=== PATIENT | female | born 1960 | race Caucasian/White ===

== ENCOUNTER → 2017-08-06 | Outpatient (CLI) | payer OTHER ==
--- NOTE | 2017-08-07 13:58 | MM ---
Reason for exam: screening (asymptomatic). Last mammogram was performed 2 years ago. History: Patient is postmenopausal. Family history of breast cancer in maternal grandmother. Physical Findings: A clinical breast exam by your physician is recommended on an annual basis and results should be correlated with mammographic findings. MG 3D Screening Mammo W/Cad Bilateral CC and MLO view(s) were taken. Prior study comparison: August 15, 2015, bilateral MG 3d screening mammo w/cad. November 02, 2014, right breast MG diagnostic mammo RT w CAD. The breast tissue is heterogeneously dense. This may lower the sensitivity of mammography. There is chronic nodularity bilaterally. No significant changes when compared with prior studies. ASSESSMENT: Benign, BI-RAD 2 RECOMMENDATION: Routine screening mammogram of both breasts in 1 year.
== END | disposition home or self-care (01) ==
LOC: RADMAMWWP 08:05
PROVIDERS: ATTEND Obstetrics & Gynecology
DX: Z12.31 Encounter for screening mammogram for malignant neoplasm of breast (principal)
CPT/HCPCS: 77063; 77067

== ENCOUNTER → 2017-08-06 | Outpatient (CLI) | payer OTHER ==
[2017-08-06 09:15] LABS: Basophils # (A) 0.1 k/uL (0-0.2); Basophils % (A) 1 %; Eosinophils # (A) 0.3 k/uL (0-0.7); Eosinophils % (A) 6 %; HGB 13.8 gm/dL (11.4-16.0); Lymphocytes # (A) 1.9 k/uL (1.0-4.8); Lymphocytes % (A) 34 %; MCH 32.6 pg (25.0-35.0); MCHC 34.6 g/dL (31.0-37.0); MCV 94.2 fL (80.0-100.0); Mean Platelet Volume 7.3; Monocytes # (A) 0.3 k/uL (0-1.0); Monocytes % (A) 6 %; Neutrophils # (A) 2.8 k/uL (1.3-7.7); Neutrophils % (A) 51 %; Platelet Count 256 k/uL (150-450); RBC 4.24 m/uL (3.80-5.40); RDW 13.1 % (11.5-15.5); WBC 5.5 k/uL (3.8-10.6)
[2017-08-06 09:36] LABS: ALT 31 U/L (9-52); AST 28 U/L (14-36); Albumin 4.4 g/dL (3.5-5.0); Alkaline Phosphatase 58 U/L (38-126); Anion Gap 15 mmol/L; Blood Urea Nitrogen 15 mg/dL (7-17); Calcium 9.3 mg/dL (8.4-10.2); Carbon Dioxide 21 mmol/L (22-30); Chloride 109 mmol/L (98-107); Glucose 89 mg/dL (74-99); Potassium 4.5 mmol/L (3.5-5.1); Sodium 145 mmol/L (137-145); Total Bilirubin 0.4 mg/dL (0.2-1.3); Total Protein 7.3 g/dL (6.3-8.2)
== END | disposition home or self-care (01) ==
LOC: LABWHC1 08:28
PROVIDERS: ATTEND Psychiatry & Neurology Neurology
DX: G43.909 Migraine, unspecified, not intractable, without status migrainosus (principal); Z51.81 Encounter for therapeutic drug level monitoring
CPT/HCPCS: 36415; 80053; 85025

== ENCOUNTER → 2017-09-24 | Outpatient (CLI) | payer OTHER ==
--- NOTE | 2017-09-24 16:20 | BD ---
EXAMINATION TYPE: Axial Bone Density DATE OF EXAM: 09/24/2017 COMPARISON: NONE CLINICAL HISTORY: Height: 63 Weight: 162.4 FRAX RISK QUESTIONS: Alcohol (3 or more units per day): no Family History (Parent hip fracture): no Glucocorticoids (More than 3mos): no (Ex: prednisone, prednisolone, methylprednisolone, dexamethasone, and hydrocortisone). History of Fracture in Adulthood: no Secondary Osteoporosis: 1. Type 1 Diabetes: no 2. Hyperthyroidism: no 3. Menopause before 45: no 4. Malnutrition: no 5. Chronic liver disease: no Rheumatoid Arthritis: no Current Tobacco Use: no RISK FACTORS HISTORY OF: Family History of Osteoporosis: no Active: yes Diet low in dairy products/other sources of calcium: no Postmenopausal woman: ablation 5 - 7 years ago Lost more than 2 inches in height since high school: no MEDICATIONS: coguard, topamax, simvastatin, aspirin, vitamins, fish oil, migraine meds Additional History: EXAM MEASUREMENTS: Bone mineral densitometry was performed using the [employer] System. Bone mineral density as measured about the Lumbar spine is: ----- L1-L4(G/cm2): 0.885 T Score Values are as follows: ----- L2: -2.6 ----- L3: -2.6 ----- L4: -2.6 ----- L1-L4: -2.5 Bone mineral density : baseline Bone mineral density about the R hip (g/cm2): 0.693 Bone mineral density about the L hip (g/cm2): 0.714 T Score values are as follows: -----R Neck: -2.5 -----L Neck: -2.3 -----R Total: -1.9 -----L Total: -1.8 Bone mineral density : baseline IMPRESSION: Osteoporosis (T Score less than -2.5). There is increased fracture risk and therapy is usually indicated based on age. Re-Screen 1-2 years. NOTE: T-SCORE=SD OF THE YOUNG ADULT MEAN.
== END | disposition home or self-care (01) ==
LOC: RADBDWWP 13:21
PROVIDERS: ATTEND Obstetrics & Gynecology
DX: Z13.820 Encounter for screening for osteoporosis (principal); M81.0 Age-related osteoporosis without current pathological fracture
CPT/HCPCS: 77080

== ENCOUNTER 2017-12-10 10:08 | Day surgery (SDC) | payer OTHER ==
[2017-12-05 16:05] VITALS: BMI 27.4
[~2017-12-10 10:08] MED LIST: LACTATED RINGERS 1,000 ML IV SCH
[2017-12-10 10:49] VITALS: RESP 16; TEMP 97.5
[2017-12-10] MEDS ORDERED: PROPOFOL 10 MG/ML 20 ML VIAL IV ONE (11:32)
[2017-12-10] MEDS ORDERED: LIDOCAINE 1% INJ 10MG/ML (20 ML MDV) ONE (11:32)
--- NOTE | 2017-12-10 11:36 | P.GSHP ---
History of Present Illness H&P Date: 12/10/17 Chief Complaint: Colon cancer screening 57-year-old female here today for colonoscopy. History of previous right colectomy for appendicitis. No bowel complaints. Family history of colon cancer in her grandmother. Last colonoscopy over 10 years ago. Past Medical History Past Medical History: Hyperlipidemia Additional Past Medical History / Comment(s): Migraines for 12 years. Hx. of chest pain results were negative. History of Any Multi-Drug Resistant Organisms: None Reported Past Surgical History: Appendectomy, Tubal Ligation, Uterine Ablation Additional Past Surgical History / Comment(s): Colonoscopy, surgery for a pocket from ruptured appendex., bowel ruptured. Past Anesthesia/Blood Transfusion Reactions: No Reported Reaction Smoking Status: Former smoker - Past Family History Mother Family Medical History: Cancer Additional Family Medical History / Comment(s): Lung Father Family Medical History: Cancer Additional Family Medical History / Comment(s): Lung Medications and Allergies Home Medications Medication Instructions Recorded Confirmed Type Amitriptyline HCl [Elavil] 50 mg PO DAILY 12/05/17 12/10/17 History Aspirin [Children's Aspirin] 81 mg PO DAILY 12/05/17 12/05/17 History Krfcxzfafm-PKB-Thwejwk-Codeine 1 - 2 cap PO DAILY PRN 12/05/17 12/05/17 History [Fiorinal w/Cod 37-029-60-30MG] Calcium Carbonate/Vitamin D3 1 each PO DAILY 12/05/17 12/05/17 History [Calcium 500-Vit D3 200 Tablet] Diazepam [Valium] 5 mg PO DAILY PRN 12/05/17 12/05/17 History Magnesium 200 mg PO DAILY 12/05/17 12/05/17 History Multivitamins, Thera [Multivitamin 1 tab PO DAILY 12/05/17 12/05/17 History (formulary)] Nadolol [Corgard] 80 mg PO BID 12/05/17 12/10/17 History [place]-3 Fatty Acids/Fish Oil [Fish 1 each PO DAILY 12/05/17 12/05/17 History Oil 1,000 mg Softgel] Simvastatin [Zocor] 20 mg PO HS 12/05/17 12/10/17 History Topiramate [Topamax] 50 mg PO BID 12/05/17 12/10/17 History Allergies Allergy/AdvReac Type Severity Reaction Status Date / Time naproxen Allergy Rash/Hives Verified 12/10/17 10:27 Surgical - Exam Vital Signs Temp Pulse Resp BP Pulse Ox 97.5 F L 74 16 131/69 100 12/10/17 10:47 12/10/17 10:47 12/10/17 10:47 12/10/17 10:47 12/10/17 10:47 Physical exam: General: Well-developed, well-nourished HEENT: Normocephalic, sclerae nonicteric Abdomen: Nontender, nondistended Extremities: No edema Neuro: Alert and oriented Assessment and Plan (1) Colon cancer screening Narrative/Plan: Will proceed with colonoscopy at this time. Current Visit: Yes Status: Acute Code(s): Z12.11 - ENCOUNTER FOR SCREENING FOR MALIGNANT NEOPLASM OF COLON SNOMED Code(s): 358249708
--- NOTE | 2017-12-10 12:00 | P.PCN ---
Date of Procedure: 12/10/17 Procedure(s) Performed: PREOPERATIVE DIAGNOSIS: Colon cancer screening POSTOPERATIVE DIAGNOSIS: Small cecal polyp, mild diverticulosis PROCEDURE: Colonoscopy with biopsy ANESTHESIA: MAC SURGEON: Gustavo Silva M.D. SPECIMENS: Cecal polyp ENDOSCOPIC PROCEDURE: The patient was placed on the endoscopy table in the left decubitus position. The Olympus colonoscope was inserted into the anus and passed under direct visualization to the base of the cecum. The appendiceal orifice was visualized. There did appear to be a small linear scar along the lateral aspect of the cecum. The patient had a history of previous right colectomy which was not accurate. From that point the scope was slowly withdrawn inspecting all surfaces carefully. There is a small polyp seen in the base of the cecum which was biopsied and removed using the cold biopsy forceps. There were no neoplastic inflammatory or polypoid lesions throughout the remainder of the cecum, ascending, transverse, descending, sigmoid and rectum. There was very mild left-sided diverticulosis noted. Digital rectal examination was normal. The patient was taken to the recovery room in stable condition per anesthesia guidelines. RECOMMENDATIONS: Await biopsy results.
[2017-12-10 12:23] VITALS: BP 136/80; PULSE 57
== END 2017-12-10 12:42 | disposition home or self-care (01) ==
LOC: ORWHC2ENDO 10:08
PROVIDERS: ATTEND Surgery
DX: Z12.11 Encounter for screening for malignant neoplasm of colon (principal); D12.0 Benign neoplasm of cecum; K57.30 Diverticulosis of large intestine without perforation or abscess without bleeding; Z90.49 Acquired absence of other specified parts of digestive tract; Z80.0 Family history of malignant neoplasm of digestive organs; E78.5 Hyperlipidemia, unspecified; G43.909 Migraine, unspecified, not intractable, without status migrainosus; Z79.82 Long term (current) use of aspirin; Z79.899 Other long term (current) drug therapy; Z88.6 Allergy status to analgesic agent; Z98.51 Tubal ligation status; Z87.891 Personal history of nicotine dependence
CPT/HCPCS: 88305; 45380; J2001; J2704

== ENCOUNTER 2019-08-19 16:28 | Emergency (ER) | payer OTHER ==
[2019-08-19 16:35] VITALS: BP 157/90; PULSE 75; RESP 18; TEMP 98.4
[2019-08-19] MEDS ORDERED: Acetaminophen-Codeine 300-30mg TAB PO STA (16:54)
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
--- NOTE | 2019-08-19 17:32 | XR ---
EXAMINATION TYPE: XR elbow complete LT DATE OF EXAM: 08/19/2019 COMPARISON: NONE HISTORY: Elbow pain TECHNIQUE: 3 views FINDINGS: I see no fracture nor dislocation. There is posterior and anterior fat pad sign consistent with elbow joint effusion. Joint spaces are normal. IMPRESSION: Elbow joint effusion. No fracture line seen.
--- NOTE | 2019-08-19 17:35 | CT ---
EXAMINATION TYPE: CT brain faiza wo con DATE OF EXAM: 08/19/2019 COMPARISON: None HISTORY: Left sided head injury. Fall. CT DLP: 1240.7 mGycm Automated exposure control for dose reduction was used. Ventricles have normal size. There is no mass effect nor midline shift. There is no sign of intracran ial hemorrhage. There is asymmetric appearance of the lateral ventricles on left side is larger than the right but thought to be within normal limits. I see no cerebral atrophy. The white matter appears normal. Calvarium is intact. Cervical vertebra have fairly normal spacing and alignment. Posterior elements are intact. Facet join ts are normal for age. The skull base is intact. There is normal aeration of the temporal bones. I se e no bony destructive process. IMPRESSION: Negative CT scan of the cervical spine. Negative CT scan of the brain.
[2019-08-19] MEDS ORDERED: ACET/COD 300 MG/30 MG STARTER PACK 6 TAB BTL PO STA (18:42)
== END 2019-08-19 19:04 | disposition home or self-care (01) ==
LOC: EC 16:28
DX: S42.402A Unspecified fracture of lower end of left humerus, initial encounter for closed fracture (principal); S09.90XA Unspecified injury of head, initial encounter; E78.5 Hyperlipidemia, unspecified; Z79.82 Long term (current) use of aspirin; Z79.899 Other long term (current) drug therapy; Z88.6 Allergy status to analgesic agent; Z87.891 Personal history of nicotine dependence; V19.9XXA Pedal cyclist (driver) (passenger) injured in unspecified traffic accident, initial encounter; Y93.55 Activity, bike riding
CPT/HCPCS: 29125; 70450; 72125; 99284

== ENCOUNTER → 2019-09-09 | Outpatient (CLI) | payer OTHER ==
--- NOTE | 2019-09-10 08:55 | MM ---
Reason for exam: screening (asymptomatic). Last mammogram was performed 2 years and 1 month ago. History: Patient is postmenopausal. Family history of breast cancer in maternal grandmother. Physical Findings: A clinical breast exam by your physician is recommended on an annual basis and results should be correlated with mammographic findings. MG 3D Screening Mammo W/Cad Bilateral CC and MLO view(s) were taken. Prior study comparison: August 06, 2017, bilateral MG 3d screening mammo w/cad. August 15, 2015, bilateral MG 3d screening mammo w/cad. The breast tissue is heterogeneously dense. This may lower the sensitivity of mammography. No persisting underlying areas of distortion are identified on 3D, with particular attention on the left due to patient indicated palpable abnormality. ASSESSMENT: Incomplete: need additional imaging evaluation, BI-RAD 0 RECOMMENDATION: Ultrasound of the left breast. [facility] will attempt to contact patient to return for ultrasound.
== END | disposition home or self-care (01) ==
LOC: RADMAMWWP 07:27
PROVIDERS: ATTEND Obstetrics & Gynecology
DX: Z12.31 Encounter for screening mammogram for malignant neoplasm of breast (principal)
CPT/HCPCS: 77063; 77067

== ENCOUNTER → 2019-09-21 | Outpatient (CLI) | payer OTHER ==
--- NOTE | 2019-09-21 08:11 | USB ---
Reason for exam: additional evaluation requested from abnormal screening. History: Patient is postmenopausal. Family history of breast cancer in maternal grandmother. Physical Findings: Nurse Summary: Patient complains of left breast lump with intermittent pain 2 months ago, gone now (nurse mj). US Breast Workup Limited LT Left limited breast ultrasound including focal area of concern, retroareolar and axilla demonstrates a 0.2 x 0.3 x 0.3cm cystic, benign lesion at 10 o'clock. Patient reports that the palpable area has resolved. Scanned 9-12 o'clock. These results were verbally communicated with the patient and result sheet given to the patient on 09/21/19. ASSESSMENT: Benign, BI-RAD 2 RECOMMENDATION: Return to routine screening mammogram schedule for both breasts. Manage patient on a clinical basis. If a palpable are recurs, the area can be rescanned.
== END | disposition home or self-care (01) ==
LOC: RADUSWWP 07:12
PROVIDERS: ATTEND Obstetrics & Gynecology
DX: R92.8 Other abnormal and inconclusive findings on diagnostic imaging of breast (principal)

== ENCOUNTER → 2020-11-07 | Outpatient (CLI) | payer BC, OTHER ==
--- NOTE | 2020-11-07 15:52 | BD ---
EXAMINATION TYPE: Axial Bone Density DATE OF EXAM: 11/07/2020 COMPARISON: NONE CLINICAL HISTORY: Height: 63 Weight: 171.1 FRAX RISK QUESTIONS: Alcohol (3 or more units per day): no Family History (Parent hip fracture): no Glucocorticoids (More than 3mos): no (Ex: prednisone, prednisolone, methylprednisolone, dexamethasone, and hydrocortisone). History of Fracture in Adulthood: yes Secondary Osteoporosis: 1. Type 1 Diabetes: no 2. Hyperthyroidism: no 3. Menopause before 45: no 4. Malnutrition: no 5. Chronic liver disease: no Rheumatoid Arthritis: no Current Tobacco Use: no RISK FACTORS HISTORY OF: Surgery to Spine/Hip(right/left)/Wrist (right/left): no Family History of Osteoporosis: no Active: no Diet low in dairy products/other sources of calcium: no Postmenopausal woman: yes Lost more than 2 inches in height since high school: no MEDICATIONS: Additional History: EXAM MEASUREMENTS: Bone mineral densitometry was performed using the [employer] System. Bone mineral density as measured about the Lumbar spine is: ----- L1-L4(G/cm2): 0.763 T Score Values are as follows: ----- L2: -4.2 ----- L3: -3.3 ----- L4: -3.6 ----- L1-L4: -3.5 Bone mineral density has: decreased -14.6 % since study of: 09.24.2017 Bone mineral density about the R hip (g/cm2): 0.690 Bone mineral density about the L hip (g/cm2): 0.684 T Score values are as follows: -----R Neck: -2.5 -----L Neck: -2.5 -----R Total: -2.0 -----L Total: -2.0 Bone mineral density has: decreased -2.6 % since study of: 09.24.2017 IMPRESSION: Osteoporosis (T Score less than -2.5). There is increased fracture risk and therapy is usually indicated based on age. Re-Screen 1-2 years. NOTE: T-SCORE=SD OF THE YOUNG ADULT MEAN.
--- NOTE | 2020-11-08 09:20 | MM ---
Reason for exam: screening (asymptomatic). Last mammogram was performed 1 year and 2 months ago. History: Patient is postmenopausal. Family history of breast cancer in maternal grandmother. Took hormonal contraceptives for 2 years. Physical Findings: A clinical breast exam by your physician is recommended on an annual basis and results should be correlated with mammographic findings. MG 3D Screening Mammo W/Cad Bilateral CC and MLO view(s) were taken. Prior study comparison: September 09, 2019, bilateral MG 3d screening mammo w/cad. August 06, 2017, bilateral MG 3d screening mammo w/cad. The breast tissue is heterogeneously dense. This may lower the sensitivity of mammography. There is no discrete abnormality. No significant changes when compared with prior studies. ASSESSMENT: Negative, BI-RAD 1 RECOMMENDATION: Routine screening mammogram of both breasts in 1 year.
== END | disposition home or self-care (01) ==
LOC: RADMAMWWP 07:26
PROVIDERS: ATTEND Obstetrics & Gynecology
DX: Z12.31 Encounter for screening mammogram for malignant neoplasm of breast (principal); M81.0 Age-related osteoporosis without current pathological fracture
CPT/HCPCS: 77063; 77067; 77080

== ENCOUNTER → 2022-01-01 | Outpatient (CLI) | payer BC ==
--- NOTE | 2022-01-02 08:28 | MM ---
Reason for Exam: Screening (asymptomatic). Last mammogram was performed 1 year(s) and 2 month(s) ago. Patient History: Menarche at age 10. First Full-Term at age 25. Postmenopausal. Patient used Hormonal Contraceptives for 2 years. Maternal grandmother had breast cancer. Risk Values: Karen 5 year model risk: 1.7%. NCI Lifetime model risk: 7.4%. Prior Study Comparison: 08/06/2017 Bilateral Screening Mammogram, [facility]. 09/09/2019 Bilateral Screening Mammogram, [facility]. 11/07/2020 Bilateral Screening Mammogram, [facility]. Tissue Density: The breast tissue is heterogeneously dense. This may lower the sensitivity of mammography. Findings: Analyzed By CAD. There is no suspicious group of microcalcifications. Increased asymmetric density 12:00 position left breast zone B. Overall Assessment: Incomplete: need additional imaging evaluation, BI-RAD 0 Management: Diagnostic Mammogram of the left breast. A clinical breast exam by your physician is recommended on an annual basis and results should be correlated with mammographic findings. Electronically signed and approved by: Brayan Sam M.D. Radiologis
== END | disposition home or self-care (01) ==
LOC: RADMAMWWP 16:29
PROVIDERS: ATTEND Obstetrics & Gynecology
DX: Z12.31 Encounter for screening mammogram for malignant neoplasm of breast (principal); Z78.0 Asymptomatic menopausal state; Z80.3 Family history of malignant neoplasm of breast
CPT/HCPCS: 77067

== ENCOUNTER → 2022-01-07 | Outpatient (CLI) | payer BC ==
--- NOTE | 2022-01-07 09:09 | MM ---
Reason for Exam: Additional evaluation requested from abnormal screening. Last screening mammogram was performed less than 1 month ago. Patient History: Menarche at age 10. First Full-Term at age 25. Postmenopausal. Patient used Hormonal Contraceptives for 2 years. Maternal grandmother had breast cancer. Risk Values: Karen 5 year model risk: 1.7%. NCI Lifetime model risk: 7.4%. Prior Study Comparison: 12/26/1994 Screening Mammogram, [facility]. 04/26/2014 Bilateral Diagnostic Mammogram, [facility]. 04/26/2014 Right Diagnostic Ultrasound, [facility]. 11/02/2014 Right Diagnostic Mammogram, [facility]. 08/15/2015 Bilateral Screening Mammogram, [facility]. 08/06/2017 Bilateral Screening Mammogram, [facility]. 09/09/2019 Bilateral Screening Mammogram, [facility]. 09/21/2019 Left Diagnostic Ultrasound, [facility]. 11/07/2020 Bilateral Screening Mammogram, [facility]. 01/01/2022 Bilateral MG screening mammo w CAD, [facility]. Tissue Density: Left: The breast tissue is heterogeneously dense. This may lower the sensitivity of mammography. Findings: Analyzed By CAD. Asymmetric dense tissue at 12:00 of the left breast film be persists with compression. No suspicious group of microcalcifications. Overall Assessment: Incomplete: need additional imaging evaluation, BI-RAD 0 Management: Diagnostic Breast Ultrasound of the left breast. A clinical breast exam by your physician is recommended on an annual basis and results should be correlated with mammographic findings. This exam should not preclude additional follow-up of suspicious palpable abnormalities. Results were given to the patient verbally at the time of exam. Electronically signed and approved by: Stas De La Rosa D.O.
--- NOTE | 2022-01-07 09:50 | USB ---
Reason for Exam: Additional evaluation requested from abnormal screening. Patient History: Menarche at age 10. First Full-Term at age 25. Postmenopausal. Patient used Hormonal Contraceptives for 2 years. Maternal grandmother had breast cancer. Risk Values: [place] 5 year model risk: 1.7%. NCI Lifetime model risk: 7.4%. Technique: Method: Targeted. Prior Study Comparison: 09/09/2019 Bilateral Screening Mammogram, [facility]. 11/07/2020 Bilateral Screening Mammogram, [facility]. 01/01/2022 Bilateral MG screening mammo w CAD, [facility]. Findings: The upper section of the breast of the left breast, the axilla of the left breast and the retroareolar of the left breast were scanned. A complete US of all four quadrants of the breast and retro-areolar region were reviewed. The axillary tail was evaluated. No solid or cystic masses are identified.. Overall Assessment: Negative, BI-RAD 1 Management: Screening Mammogram of both breasts in 1 year. A clinical breast exam by your physician is recommended on an annual basis and results should be correlated with mammographic findings. This exam should not preclude additional follow-up of suspicious palpable abnormalities. Results were given to the patient verbally at the time of exam. Electronically signed and approved by: Stas De La Rosa D.O.
== END | disposition home or self-care (01) ==
LOC: RADMAMWWP 08:41
PROVIDERS: ATTEND Obstetrics & Gynecology
DX: R92.8 Other abnormal and inconclusive findings on diagnostic imaging of breast (principal); Z80.3 Family history of malignant neoplasm of breast; Z78.0 Asymptomatic menopausal state
CPT/HCPCS: 77065

== ENCOUNTER → 2022-01-11 | Outpatient (CLI) | payer BC ==
[2022-01-11 17:46] LABS: Basophils # (A) 0.06 X 10*3/uL (0.00-0.10); Basophils % (A) 0.9 %; Eosinophils # (A) 0.34 X 10*3/uL (0.04-0.35); Eosinophils % (A) 5.2 %; HCT 39.7 % (37.2-46.3); HGB 13.1 g/dL (12.0-15.0); Immature Grans, Automated 0.2 %; Lymphocytes # (A) 2.32 X 10*3/uL (0.90-5.00); Lymphocytes % (A) 35.7 %; MCH 32.2 pg (27.0-32.0); MCV 97.5 fL (80.0-97.0); Mean Platelet Volume 9.8 fL (9.5-12.2); Monocytes # (A) 0.54 X 10*3/uL (0.20-1.00); Monocytes % (A) 8.3 %; NRBC Per 100 WBC 0 /100 WBCS (0.0-0.0); Neutrophils # (A) 3.22 X 10*3/uL (1.80-7.70); Neutrophils % (A) 49.7 %; Platelet Count 217 X 10*3/uL (140-440); RBC 4.07 X 10*6/uL (4.10-5.20); RDW 12.4 % (11.5-14.5); WBC 6.49 X 10*3/uL (4.50-10.00)
[2022-01-11 17:53] LABS: ALT 13 U/L (8-44); AST 26 U/L (13-35); African American GFR (CKD) 106.9 (60.0-200.0); Albumin 4.6 g/dL (3.8-4.9); Albumin/Globulin Ratio 1.53 (1.60-3.17); Alkaline Phosphatase 62 U/L (41-126); BUN/Creat Ratio 17.43 Ratio (12.00-20.00); Blood Urea Nitrogen 12.2 mg/dL (9.0-27.0); Calcium 9.9 mg/dL (8.7-10.3); Carbon Dioxide 22.6 mmol/L (20.0-27.5); Chloride 109 mmol/L (96-109); Glucose 93 mg/dL (70-110); Non-African American GFR(CKD) 92.2 (60.0-200.0); Potassium 4.6 mmol/L (3.5-5.5); Sodium 143 mmol/L (135-145); Total Bilirubin <0.15 mg/dL (0.30-1.20); Total Protein 7.6 g/dL (6.2-8.2)
[2022-01-11 18:25] LABS: Erythrocyte Sedimentation Rate 9 mm/Hr (0-30)
== END | disposition home or self-care (01) ==
LOC: LABWHC1 12:45
PROVIDERS: ATTEND Psychiatry & Neurology Neurology
DX: Z00.00 Encounter for general adult medical examination without abnormal findings (principal); Z51.81 Encounter for therapeutic drug level monitoring
CPT/HCPCS: 36415; 80053; 84439; 84443; 85025; 85652

== ENCOUNTER 2022-12-10 10:33 | Day surgery (SDC) | payer BC ==
[2022-12-04 10:45] VITALS: BMI 28.8
[~2022-12-10 10:33] MED LIST changes: -LACTATED RINGERS 1,000 ML IV SCH; +LIDOCAINE 1% (10MG/ML) FOR IV START INTRADERMA PRN
[2022-12-10] MEDS: LACTATED RINGERS 1,000 ML IV SCH ×2 (11:21→11:59)
[2022-12-10 11:25] VITALS: TEMP 97
[2022-12-10] MEDS ORDERED: LIDOCAINE 1% INJ 10MG/ML (20 ML MDV) ONE (12:02)
[2022-12-10] MEDS ORDERED: PROPOFOL 10 MG/ML 20 ML VIAL IV ONE (12:02)
--- NOTE | 2022-12-10 12:04 | P.GSHP ---
History of Present Illness H&P Date: 12/10/22 Chief Complaint: Colon cancer screening with history of polyps 62-year-old female here for colonoscopy. Last colonoscopy 5 years ago. Patient had colon polyp at the time. Some constipation at times. No rectal bleeding. No family history of colon cancer. Past Medical History Past Medical History: Chest Pain / Angina, Hyperlipidemia Additional Past Medical History / Comment(s): Migraines for 12 years. History of Any Multi-Drug Resistant Organisms: None Reported Past Surgical History: Appendectomy, Tubal Ligation, Uterine Ablation Additional Past Surgical History / Comment(s): Colonoscopy, surgery for a pocket from ruptured appendex., bowel ruptured. Past Anesthesia/Blood Transfusion Reactions: No Reported Reaction Smoking Status: Former smoker - Past Family History Mother Family Medical History: Cancer Additional Family Medical History / Comment(s): Lung Father Family Medical History: Cancer Additional Family Medical History / Comment(s): Lung Medications and Allergies Home Medications Medication Instructions Recorded Confirmed Type Amitriptyline HCl [Elavil] 50 mg PO HS 12/05/17 12/10/22 History Jisgrzmwqx-ZVS-Bjmsqxl-Codeine 1 - 2 cap PO DAILY PRN 12/05/17 12/10/22 History [Fiorinal w/Cod [id number]] Calcium Carbonate/Vitamin D3 1 each PO DAILY 12/05/17 12/10/22 History [Calcium 500-Vit D3 200 Tablet] Magnesium 400 mg PO DAILY 12/05/17 12/10/22 History Multivitamins, Thera [Multivitamin 1 tab PO DAILY 12/05/17 12/10/22 History (formulary)] Simvastatin [Zocor] 20 mg PO HS 12/05/17 12/10/22 History diazePAM [Valium] 5 mg PO DAILY PRN 12/05/17 12/10/22 History nadoloL [Corgard] 80 mg PO QAM 12/05/17 12/10/22 History Cholecalciferol [Vitamin D3 (25 25 mcg PO DAILY 12/04/22 12/10/22 History Mcg = 1000 Iu)] Escitalopram [Lexapro] 10 mg PO HS 12/04/22 12/10/22 History Ibandronate Sodium [Boniva] 150 mg PO QMONTHLY 12/04/22 12/10/22 History Topiramate [Topamax] 50 mg PO BID 12/04/22 12/10/22 History ZOLMitriptan 5 mg PO DIRECTED PRN 12/04/22 12/10/22 History nadoloL [Corgard] 120 mg PO HS 12/04/22 12/10/22 History Allergies Allergy/AdvReac Type Severity Reaction Status Date / Time naproxen Allergy Rash/Hives Verified 12/10/22 11:04 Surgical - Exam Vital Signs Temp Pulse Resp BP Pulse Ox 97.0 F L 79 16 161/95 100 12/10/22 11:14 12/10/22 11:14 12/10/22 11:14 12/10/22 11:14 12/10/22 11:14 Physical exam: General: Well-developed, well-nourished HEENT: Normocephalic, sclerae nonicteric Abdomen: Nontender, nondistended Extremities: No edema Neuro: Alert and oriented Assessment and Plan (1) Colon cancer screening Narrative/Plan: Will proceed with colonoscopy at this time Current Visit: No Status: Acute Code(s): Z12.11 - ENCOUNTER FOR SCREENING FOR MALIGNANT NEOPLASM OF COLON SNOMED Code(s): 835307450
--- NOTE | 2022-12-10 12:17 | P.PCN ---
Date of Procedure: 12/10/22 Procedure(s) Performed: PREOPERATIVE DIAGNOSIS: Colon cancer screening with history of polyps POSTOPERATIVE DIAGNOSIS: Diverticulosis PROCEDURE: Colonoscopy ANESTHESIA: MAC SURGEON: Gustavo Silva M.D. SPECIMENS: None ENDOSCOPIC PROCEDURE: The patient was placed on the endoscopy table in the left decubitus position. The Olympus colonoscope was inserted into the anus and passed under direct visualization to the base of the cecum. The appendiceal orifice was visualized. From that point the scope was slowly withdrawn inspecting all surfaces carefully. There were no neoplastic inflammatory or polypoid lesions throughout the cecum, ascending, transverse, descending, sigmoid and rectum. There was mild left-sided diverticulosis noted. Digital rectal examination was normal. The patient was taken to the recovery room in stable condition per anesthesia guidelines. RECOMMENDATIONS: Resume diet. Repeat colonoscopy 7 years.
[2022-12-10 12:50] VITALS: BP 121/84; PULSE 84; RESP 17
== END 2022-12-10 12:57 | disposition home or self-care (01) ==
LOC: ORWHC2ENDO 10:33
PROVIDERS: ATTEND Surgery
DX: Z12.11 Encounter for screening for malignant neoplasm of colon (principal); K57.30 Diverticulosis of large intestine without perforation or abscess without bleeding; E78.5 Hyperlipidemia, unspecified; G43.909 Migraine, unspecified, not intractable, without status migrainosus; Z87.891 Personal history of nicotine dependence; Z86.010 Personal history of colon polyps; Z90.49 Acquired absence of other specified parts of digestive tract; Z79.899 Other long term (current) drug therapy; Z88.6 Allergy status to analgesic agent
CPT/HCPCS: 45378; J2001; J2704

== ENCOUNTER → 2022-12-26 | Outpatient (CLI) | payer BC ==
--- NOTE | 2022-12-26 12:34 | CA ---
Exercise Stress Test Report Name: Jennifer Gurrola Exam Date: 12/26/2022 09:32 Exam Location: [place] Stress Ht (in): 63 Wt (lb): 160 BSA: 1.76 Ordering Phys: Anastasiia Silva MD Referring Phys: YOLANDAJENNIFER Marte,, Technologist: Deepak Chahal Age: 62 Gender: F : 1960 Procedure CPT: Indications: R07.9 CHEST PAIN ICD-10 Codes: Patient History: CP, CHOL, FAMILY HX, TOB (1/2 PPD X 30 YRS) Medications: CORGARD, TOPAMEX, SIMVASTATIN, TRIZAMIDINE, VITAMINS Meds past 24 hrs: Pretest Chest Pain: STRESS TEST Ramiro Protocol Exercise Duration (min:sec): 07:[address] Depressions (mm): Angina Score: Jya Score: Resting HR (bpm): 69 Peak HR (bpm): 131 Resting BP (mmHg): 152 / 80 Peak BP (mmHg): 180 / 86 MPHR: 156 Target HR: 133 % MPHR: 84 METS: 8.8 Total Dose: Peak Dose: Atropine: Double Product: 32012 BP Response: Stress Termination: Patient request Stress Symptoms: SLIGHT CHEST PRESSURE Stress Summary: ECG ANALYSIS Resting ECG: Normal sinus rhythm, heart rate 69 beats a minute Stress ECG: No significant ST-T wave changes diagnostic for ischemia by ST segment analysis. No ectopic beats or sustained arrhythmias CONCLUSIONS Fair exercise tolerance for patient's age achieving 8.8 metabolic equivalents Normal hemodynamic response to exercise Nonischemic ECG response to exercise Overall normal treadmill stress ECG Dr Grant Justice (Electronically Signed) Final Date: 26 December 2022 12:33
== END | disposition home or self-care (01) ==
LOC: RADNMMAIN 07:47
PROVIDERS: ATTEND Family Medicine
DX: E78.00 Pure hypercholesterolemia, unspecified (principal); R07.9 Chest pain, unspecified
CPT/HCPCS: 93017; 78452; A9500

== ENCOUNTER → 2023-01-10 | Outpatient (CLI) | payer BC ==
--- NOTE | 2023-01-13 14:35 | MM ---
Reason for Exam: Screening (asymptomatic). Last screening mammogram was performed 12 month(s) ago. Patient History: Menarche at age 10. First Full-Term at age 25. Postmenopausal. Patient used Hormonal Contraceptives for 2 years. Maternal grandmother had breast cancer. Risk Values: Karen 5 year model risk: 1.8%. NCI Lifetime model risk: 7.2%. Prior Study Comparison: 11/07/2020 Bilateral Screening Mammogram, [facility]. 01/01/2022 Bilateral MG screening mammo w CAD, [facility]. 01/07/2022 Left MG work up mamm w CAD LT, [facility]. Tissue Density: The breast tissue is heterogeneously dense. This may lower the sensitivity of mammography. Findings: Analyzed By CAD. There is no suspicious group of microcalcifications or new suspicious mass in either breast. Overall Assessment: Benign, BI-RAD 2 Management: Screening Mammogram of both breasts in 1 year. . Patient should continue monthly self-breast exams. A clinical breast exam by your physician is recommended on an annual basis. This exam should not preclude additional follow-up of suspicious palpable abnormalities. Note on Karen scores and lifetime risk: 1. A Karen score greater than 3% is considered moderate risk. If this is the case, consider specialist referral to assess eligibility for a risk reducing agent. 2. If overall lifetime risk for the development of breast cancer is 20% or higher, the patient may qualify for future screening with alternating mammogram and breast MRI. Electronically signed and approved by: Brayan Sam M.D. Radiologis
== END | disposition home or self-care (01) ==
LOC: RADMAMWWP 14:36
PROVIDERS: ATTEND Obstetrics & Gynecology
DX: Z12.31 Encounter for screening mammogram for malignant neoplasm of breast (principal); Z78.0 Asymptomatic menopausal state; Z80.3 Family history of malignant neoplasm of breast
CPT/HCPCS: 77067

== ENCOUNTER → 2023-10-01 | Outpatient (CLI) | payer BC ==
[2023-10-01 15:11] LABS: Basophils # (A) 0.07 X 10*3/uL (0.00-0.10); Eosinophils # (A) 0.32 X 10*3/uL (0.04-0.35); Eosinophils % (A) 4.4 %; HCT 43.3 % (37.2-46.3); HGB 14.7 g/dL (12.0-15.0); Lymphocytes # (A) 2.02 X 10*3/uL (0.90-5.00); MCH 32.5 pg (27.0-32.0); MCHC 33.9 g/dL (32.0-37.0); MCV 95.8 FL (80.0-97.0); Mean Platelet Volume 9.3 FL (9.5-12.2); Monocytes # (A) 0.58 X 10*3/uL (0.20-1.00); NRBC Per 100 WBC 0 X 10*3/uL (0.00-0.01); Neutrophils % (A) 58.3 %; Platelet Count 255 X 10*3/uL (140-440); RBC 4.52 X 10*6/uL (4.10-5.20); RDW 12.2 % (11.5-14.5); WBC 7.21 X 10*3/uL (4.50-10.00)
[2023-10-01 15:51] LABS: ALT 25 U/L (8-44); AST 24 U/L (13-35); Albumin 4.8 g/dL (3.8-4.9); Albumin/Globulin Ratio 1.55 Ratio (1.60-3.17); Alkaline Phosphatase 75 U/L (41-126); BUN/Creat Ratio 27.83 Ratio (12.00-20.00); Blood Urea Nitrogen 16.7 mg/dL (9.0-27.0); Calcium 9.7 mg/dL (8.7-10.3); Carbon Dioxide 21.7 mmol/L (21.6-31.8); Chloride 108 mmol/L (96-109); Globulin 3.1 g/dL (1.6-3.3); Glucose 92 mg/dL (70-110); Sodium 142 mmol/L (135-145); Total Bilirubin 0.2 mg/dL (0.3-1.2); Total Protein 7.9 g/dL (6.2-8.2)
== END | disposition home or self-care (01) ==
LOC: LABWHC1 10:26
PROVIDERS: ATTEND Psychiatry & Neurology Neurology
DX: T50.995A Adverse effect of other drugs, medicaments and biological substances, initial encounter (principal)
CPT/HCPCS: 36415; 80053; 82306; 84439; 84443; 85025

== ENCOUNTER → 2023-11-04 | Outpatient (CLI) | payer MEDICARE ==
--- NOTE | 2023-11-07 16:41 | BD ---
EXAMINATION TYPE: Axial Bone Density DATE OF EXAM: 11/04/2023 CLINICAL HISTORY: 63 years old Female. ICD-10 CODE: Z12.31 screen mammo Height: 62.5 Weight: 165 FRAX RISK QUESTIONS: History of Fracture in Adulthood: yes Secondary Osteoporosis: no 3. Menopause before 45: 50 RISK FACTORS HISTORY OF: left elbow fracture, MEDICATIONS: topamax, bp meds, cholesterol meds, migraine meds, multivitamin, calcium and vit d Osteoporosis Medications: ibanbronatz (boniva) for about 1 yr EXAM MEASUREMENTS: Bone mineral densitometry was performed using the [employer] System. Bone mineral density as measured about the Lumbar spine is: ----- L1-L4(G/cm2): 0.786 T Score Values are as follows: ----- L1: -3.0 ----- L2: -4.3 ----- L3: -3.2 ----- L4: -2.8 ----- L1-L4: -3.3 Z Score Values are as follows: ----- L1: -1.8 ----- L2: -3.1 ----- L3: -2.1 ----- L4: -1.7 ----- L1-L4: -2.1 Bone mineral density has: Increased 11.3% since study of: 11.07.2020 Bone mineral density about the R hip (g/cm2): 0.758 Bone mineral density about the L hip (g/cm2): 0.752 T Score values are as follows: -----R Neck: -2.5 -----L Neck: -2.6 -----R Total: -2.0 -----L Total: -2.0 Z Score values are as follows: -----R Neck: -1.3 -----L Neck: -1.5 -----R Total: -1.1 -----L Total: -1.1 Bone mineral density has: Decreased -0.7% since study of: 11.07.2020 FRAX%s: The graph provided illustrates a 22.0% chance for a major osteoporotic fx and a 5.1% chance f or the hips probability for fx in 10 years time. IMPRESSION: Osteoporosis (T Score less than -2.5). There is increased fracture risk and therapy is usually indicated based on age. Re-Screen 1-2 years. NOTE: T-SCORE=SD OF THE YOUNG ADULT MEAN.
== END | disposition home or self-care (01) ==
LOC: RADBDWWP 08:00
PROVIDERS: ATTEND Family Medicine
DX: M81.0 Age-related osteoporosis without current pathological fracture (principal)
CPT/HCPCS: 77080

== ENCOUNTER → 2024-01-12 | Outpatient (CLI) | payer MEDICARE ==
--- NOTE | 2024-01-20 08:50 | MM ---
Reason for Exam: Screening (asymptomatic). Last screening mammogram was performed 12 month(s) ago. Patient History: Menarche at age 10. First Full-Term at age 25. Postmenopausal. Patient used Hormonal Contraceptives for 2 years. Maternal grandmother had breast cancer. Risk Values: Karen 5 year model risk: 1.8%. NCI Lifetime model risk: 6.9%. Prior Study Comparison: 01/01/2022 Bilateral MG screening mammo w [facility], [facility]. 01/07/2022 Left MG work up mamm w CAD , [facility]. 01/10/2023 Bilateral MG screening mammo w [facility], [facility]. Tissue Density: There are scattered areas of fibroglandular density. Findings: Analyzed By CAD. Right breast: There is no suspicious group of microcalcifications or new suspicious mass. Left breast: There is no suspicious group of microcalcifications or new suspicious mass. Overall Assessment: Negative, BI-RAD 1 Management: Screening Mammogram of both breasts in [address] [facility] will attempt to contact patient to return for supplemental views and ultrasound if indicated. Patient should continue monthly self-breast exams. A clinical breast exam by your physician is recommended on an annual basis. This exam should not preclude additional follow-up of suspicious palpable abnormalities. Note on Karen scores and lifetime risk: 1. A Karen score greater than 3% is considered moderate risk. If this is the case, consider specialist referral to assess eligibility for a risk reducing agent. 2. If overall lifetime risk for the development of breast cancer is 20% or higher, the patient may qualify for future screening with alternating mammogram and breast MRI. [facility], , 01/20/2024 8:47 AM. Electronically signed and approved by: Bobby Shin DO
== END | disposition home or self-care (01) ==
LOC: RADMAMWWP 07:56
PROVIDERS: ATTEND Family Medicine
DX: Z12.31 Encounter for screening mammogram for malignant neoplasm of breast (principal); R92.323 Mammographic fibroglandular density, bilateral breasts; Z78.0 Asymptomatic menopausal state; Z80.3 Family history of malignant neoplasm of breast
CPT/HCPCS: 77067